=== PATIENT | female | born 1970 | race African-American/Black ===

== ENCOUNTER 2017-07-12 00:30 | Inpatient (IN) ==
[2017-07-12] MEDS ORDERED: NALOXONE 0.4 MG/ML VIAL IV STA (01:08)
[2017-07-12] MEDS ORDERED: SODIUM CHLORIDE 0.9% 500 ML IV STA (01:08)
[2017-07-12] MEDS ORDERED: ALBUTEROL/IPRATROPIUM 3 ML NEB RESP TX STA (01:33)
[2017-07-12] MEDS ORDERED: FUROSEMIDE 40 MG/4 ML VIAL IV STA (01:33)
[2017-07-12 02:14] LABS: Allen Test Positive
[2017-07-12 02:24] LABS: ABG Base Excess 4.6 MMOL/L (-2.5-2.5); ABG HCO3 32.1 MMOL/L (20-26); ABG Oxygen Saturation 96.7 % (95-100); ABG PH 7.305 (7.35-7.45); ABG PO2 91.1 MM HG (80-95); ABG TCO2 34.1 MMOL/L (23-27)
[2017-07-12 02:32] LABS: Basophils % 0.3 % (0.0-0.8); Eosinophils # 0.4 10*3/uL (0.0-0.87); Eosinophils % 4.8 % (0.00-10.9); Hemoglobin 8.9 GM/DL (12.0-16.0); Immature Granulocytes % 0.3 %; Immature Granulocytes Absolute 0.02 #; Lymphocytes # 1.6 10*3/uL (1.4-4.0); Mean Corpuscular HGB Conc 29.7 GM/DL (32-36); Mean Corpuscular Hemoglobin 28 PG (27-34); Mean Corpuscular Volume 95.2 FL (87-102); Mean Platelet Volume 11.2 FL (9.6-12.0); Monocytes # 0.7 10*3/uL (0.11-0.8); Monocytes % 8.6 % (1.7-12.7); Neutrophils # 5.3 10*3/uL (1.4-7.4); Platelet Count 189 T/CUMM (130-400); Red Blood Count 3.15 MC/CUMM (3.8-5.5); Red Cell Distribution Width 14.8 % (9.3-17.3)
[2017-07-12 02:42] LABS: PT Patient Result 10.2 SECS
[2017-07-12 02:59] LABS: Lactic Acid 0.9 MMOL/L (0.4-2.0)
[2017-07-12 03:03] LABS: Ammonia 60 UMOL/L (11-32)
[2017-07-12 03:10] LABS: Amorphous Crystals,Urine Occasional /HPF (Few); Apearance,Urine CLEAR (Clear); Bacteria,Urine Occasional /HPF (Few); Bilirubin,Urine Negative (Negative); Blood, Urine Negative (Negative); Glucose,Urine (UA) Negative (Negative); Granular Casts,Urine 5 /LPF (0-1); Hyaline Casts,Urine 1 /LPF (0-3); Ketones,Urine Negative (Negative); Mucus,Urine Occasional /LPF (Occasional); Nitrite,Urine Negative (Negative); Protein,Urine Negative; RBC,Urine 1 /HPF (0-4); Squamous Epithelial Cell,Urine Occasional /HPF (0-10); Urine Color Yellow (Yellow); Urine Specific Gravity 1.013 (1.001-1.035); Urine Urobilinogen < 2.0 EU/DL (0.2-1.0); WBC,Urine <1 /HPF (0-6)
[2017-07-12 03:12] LABS: B-Type Natriuretic Peptide < 2 PG/ML (2-100)
[2017-07-12 03:13] LABS: Barbiturates Screen,Urine Negative (Negative); Benzodiazepines Screen,Urine Negative (Negative); Cannabinoid Screen,Urine Negative (Negative); Opiate Screen,Urine Negative (Negative); Phencyclidine Screen,Urine Negative (Negative)
[2017-07-12 03:13] LABS: Alanine Aminotransferase 16 U/L (13-56); Albumin 3.2 G/DL (3.4-5.0); Alkaline Phosphatase 54 U/L (45-117); Aspartate Amino Transferase 19 U/L (0-37); Blood Urea Nitrogen 15 MG/DL (7-18); Calcium 8.7 MG/DL (8.5-10.1); Glucose 102 MG/DL (74-106); Magnesium 2.3 MG/DL (1.8-2.4); Osmolality,Calculated 277.5 MOS/KG (273-304); Potassium 4.6 MMOL/L (3.5-5.1); Sodium 139 MMOL/L (136-145); Total Protein 7.8 G/DL (6.4-8.3); Troponin I Only < 0.015 NG/ML (0.00-0.045)
[2017-07-12] MEDS ORDERED: FUROSEMIDE 100 MG/10 ML VIAL ONE (03:28)
[2017-07-12 03:52] LABS: Prolactin 183.5 NG/ML
[2017-07-12] MEDS ORDERED: FLUMAZENIL 1 MG/10 ML VIAL IV STA (04:09)
[2017-07-12] MEDS ORDERED: ALBUTEROL/IPRATROPIUM 3 ML NEB RESP TX PRN (05:13)
[2017-07-12] MEDS ORDERED: ALBUTEROL 2.5 MG/3 ML NEB RESP TX PRN (05:13)
[2017-07-12] MEDS ORDERED: ONDANSETRON 4 MG/2 ML VIAL IV PRN (05:13)
[2017-07-12] MEDS ORDERED: LACTULOSE 160 GM/240 ML BOTTLE RECTAL PRN (05:58)
[2017-07-12] MEDS ORDERED: GABAPENTIN 300 MG CAPSULE PO SCH (09:00)
[2017-07-12] MEDS ORDERED: PERPHENAZINE PO SCH (09:00)
[2017-07-12] MEDS ORDERED: BENZTROPINE 1 MG TABLET PO SCH (09:00)
[2017-07-12] MEDS: NIACIN ER 500 MG TABLET PO SCH ×2 (09:45→22:28)
[2017-07-12] MEDS: SERTRALINE 50 MG TABLET PO SCH (09:45)
[2017-07-12] MEDS: LISINOPRIL 10 MG TABLET PO SCH (09:45)
[2017-07-12] MEDS: ENOXAPARIN 40 MG/0.4 ML SYRINGE SUBCUT SCH (09:46)
[2017-07-12] MEDS: FUROSEMIDE 40 MG TABLET PO SCH (09:46)
[2017-07-12] MEDS: SPIRONOLACTONE 50 MG TABLET PO SCH (09:47)
[2017-07-12] MEDS: ASPIRIN EC 325 MG TABLET PO SCH (09:47)
[2017-07-12] MEDS: FLUTICASONE/SALMETEROL 250-50 DISKUS 14 DOSE INH SCH ×2 (09:54→22:28)
[2017-07-12] MEDS: SODIUM CHLORIDE 0.9% 1,000 ML IV SCH (12:37)
[2017-07-12] MEDS ORDERED: INFLUENZA VIRUS VACCINE 0.5 ML SYRINGE IM ONE (12:40)
[2017-07-12] MEDS: PANTOPRAZOLE 40 MG VIAL IV SCH (13:53)
[2017-07-12] MEDS ORDERED: LACTULOSE 20 GM/30 ML UDCUP PO PRN (13:54)
[2017-07-12 14:47] LABS: ABG Base Excess 5.5 MMOL/L (-2.5-2.5); ABG HCO3 29.4 MMOL/L (20-26); ABG Oxygen Saturation 97.7 % (95-100); ABG PCO2 65.2 MM HG (35-48); ABG PH 7.315 (7.35-7.45); ABG PO2 99.4 MM HG (80-95); ABG TCO2 30.9 MMOL/L (23-27)
[2017-07-12] MEDS: methylPREDNISolone SOD SUC 40 MG/1 ML VIAL IV SCH (17:14)
[2017-07-12] MEDS: SIMVASTATIN 20 MG TABLET PO SCH (22:29)
[2017-07-13] MEDS: methylPREDNISolone SOD SUC 40 MG/1 ML VIAL IV SCH (01:40)
[2017-07-13 04:42] LABS: Basophils % 0.2 % (0.0-0.8); Hematocrit 28.1 VOL% (35.7-47.0); Hemoglobin 8.6 GM/DL (12.0-16.0); Immature Granulocytes % 0.5 %; Immature Granulocytes Absolute 0.03 #; Lymphocytes # 0.8 10*3/uL (1.4-4.0); Lymphocytes % 12.7 % (21.3-54.2); Mean Corpuscular HGB Conc 30.6 GM/DL (32-36); Mean Corpuscular Hemoglobin 28 PG (27-34); Mean Corpuscular Volume 91.2 FL (87-102); Mean Platelet Volume 11.6 FL (9.6-12.0); Monocytes # 0.1 10*3/uL (0.11-0.8); Monocytes % 1.8 % (1.7-12.7); Neutrophils # 5.2 10*3/uL (1.4-7.4); Neutrophils % 84.8 % (38.7-73.9); Platelet Count 202 T/CUMM (130-400); Red Blood Count 3.08 MC/CUMM (3.8-5.5); Red Cell Distribution Width 14.7 % (9.3-17.3); White Blood Count 6.1 T/CUMM (4-12)
[2017-07-13 05:18] LABS: Albumin 2.9 G/DL (3.4-5.0); Bilirubin,Total 0.7 MG/DL (0.2-1.0); Calcium 8.7 MG/DL (8.5-10.1); Osmolality,Calculated 276.7 MOS/KG (273-304); Potassium 5.2 MMOL/L (3.5-5.1); Total Protein 7.2 G/DL (6.4-8.3)
[2017-07-13] MEDS: PANTOPRAZOLE 40 MG VIAL IV SCH (06:55)
[2017-07-13] MEDS ORDERED: GLUCAGON 1 MG VIAL IM PRN (07:23)
[2017-07-13] MEDS ORDERED: DEXTROSE 50% 25 GM/50 ML VIAL IV PRN (07:23)
[2017-07-13] MEDS: INSULIN LISPRO 100 UNIT/ML SUBCUT SCH ×4 (08:15→21:20)
[2017-07-13] MEDS: LISINOPRIL 10 MG TABLET PO SCH (08:39)
[2017-07-13] MEDS: NIACIN ER 500 MG TABLET PO SCH ×2 (08:39→21:19)
[2017-07-13] MEDS: SPIRONOLACTONE 50 MG TABLET PO SCH (08:40)
[2017-07-13] MEDS: ENOXAPARIN 40 MG/0.4 ML SYRINGE SUBCUT SCH (08:40)
[2017-07-13] MEDS: FUROSEMIDE 40 MG TABLET PO SCH (08:40)
[2017-07-13] MEDS: ASPIRIN EC 325 MG TABLET PO SCH (08:40)
[2017-07-13] MEDS: predniSONE 20 MG TABLET PO SCH (08:40)
[2017-07-13] MEDS: SERTRALINE 50 MG TABLET PO SCH (08:40)
[2017-07-13] MEDS: SODIUM CHLORIDE 0.9% 1,000 ML IV SCH (08:51)
[2017-07-13] MEDS: FLUTICASONE/SALMETEROL 250-50 DISKUS 14 DOSE INH SCH ×2 (13:24→21:19)
[2017-07-13] MEDS: SIMVASTATIN 20 MG TABLET PO SCH (21:19)
[2017-07-14] MEDS: PANTOPRAZOLE 40 MG VIAL IV SCH (09:19)
[2017-07-14] MEDS: ENOXAPARIN 40 MG/0.4 ML SYRINGE SUBCUT SCH (09:19)
[2017-07-14] MEDS: NIACIN ER 500 MG TABLET PO SCH ×2 (09:19→20:58)
[2017-07-14] MEDS: predniSONE 20 MG TABLET PO SCH (09:19)
[2017-07-14] MEDS: FUROSEMIDE 40 MG TABLET PO SCH (09:20)
[2017-07-14] MEDS: SERTRALINE 50 MG TABLET PO SCH (09:20)
[2017-07-14] MEDS: SPIRONOLACTONE 50 MG TABLET PO SCH (09:20)
[2017-07-14] MEDS: LISINOPRIL 10 MG TABLET PO SCH (09:20)
[2017-07-14] MEDS: ASPIRIN EC 325 MG TABLET PO SCH (09:20)
[2017-07-14] MEDS: FLUTICASONE/SALMETEROL 250-50 DISKUS 14 DOSE INH SCH ×2 (09:27→20:58)
[2017-07-14] MEDS: INSULIN LISPRO 100 UNIT/ML SUBCUT SCH ×4 (09:28→20:59)
[2017-07-14] MEDS: SIMVASTATIN 20 MG TABLET PO SCH (20:58)
[2017-07-15] MEDS: INSULIN LISPRO 100 UNIT/ML SUBCUT SCH ×4 (07:57→21:52)
[2017-07-15] MEDS: ENOXAPARIN 40 MG/0.4 ML SYRINGE SUBCUT SCH (09:45)
[2017-07-15] MEDS: PANTOPRAZOLE 40 MG VIAL IV SCH (09:45)
[2017-07-15] MEDS: LISINOPRIL 10 MG TABLET PO SCH (09:46)
[2017-07-15] MEDS: SPIRONOLACTONE 50 MG TABLET PO SCH (09:47)
[2017-07-15] MEDS: FUROSEMIDE 40 MG TABLET PO SCH (09:47)
[2017-07-15] MEDS: predniSONE 20 MG TABLET PO SCH (09:47)
[2017-07-15] MEDS: SERTRALINE 50 MG TABLET PO SCH (09:47)
[2017-07-15] MEDS: NIACIN ER 500 MG TABLET PO SCH ×2 (09:47→21:52)
[2017-07-15] MEDS: ASPIRIN EC 325 MG TABLET PO SCH (09:47)
[2017-07-15] MEDS: FLUTICASONE/SALMETEROL 250-50 DISKUS 14 DOSE INH SCH ×2 (09:48→21:53)
[2017-07-15] MEDS: SIMVASTATIN 20 MG TABLET PO SCH (21:52)
[2017-07-16] MEDS: PANTOPRAZOLE 40 MG VIAL IV SCH (06:32)
[2017-07-16] MEDS: predniSONE 20 MG TABLET PO SCH (10:45)
[2017-07-16] MEDS: FUROSEMIDE 40 MG TABLET PO SCH (10:46)
[2017-07-16] MEDS: NIACIN ER 500 MG TABLET PO SCH ×2 (10:46→21:04)
[2017-07-16] MEDS: SERTRALINE 50 MG TABLET PO SCH (10:46)
[2017-07-16] MEDS: LISINOPRIL 10 MG TABLET PO SCH (10:46)
[2017-07-16] MEDS: ASPIRIN EC 325 MG TABLET PO SCH (10:46)
[2017-07-16] MEDS: SPIRONOLACTONE 50 MG TABLET PO SCH (10:46)
[2017-07-16] MEDS: FLUTICASONE/SALMETEROL 250-50 DISKUS 14 DOSE INH SCH ×2 (10:47→21:04)
[2017-07-16] MEDS: ENOXAPARIN 40 MG/0.4 ML SYRINGE SUBCUT SCH (10:47)
[2017-07-16] MEDS: INSULIN LISPRO 100 UNIT/ML SUBCUT SCH ×4 (11:19→21:04)
[2017-07-16] MEDS: SIMVASTATIN 20 MG TABLET PO SCH (21:04)
[2017-07-16] MEDS ORDERED: diphenhydrAMINE CAP 25 MG CAPSULE PO ONE (21:30)
[2017-07-17] MEDS: PANTOPRAZOLE 40 MG VIAL IV SCH (05:30)
[2017-07-17] MEDS: predniSONE 20 MG TABLET PO SCH (09:17)
[2017-07-17] MEDS: ASPIRIN EC 325 MG TABLET PO SCH (09:17)
[2017-07-17] MEDS: ENOXAPARIN 40 MG/0.4 ML SYRINGE SUBCUT SCH (09:17)
[2017-07-17] MEDS: NIACIN ER 500 MG TABLET PO SCH (09:18)
[2017-07-17] MEDS: LISINOPRIL 10 MG TABLET PO SCH (09:18)
[2017-07-17] MEDS: FUROSEMIDE 40 MG TABLET PO SCH (09:18)
[2017-07-17] MEDS: INSULIN LISPRO 100 UNIT/ML SUBCUT SCH ×3 (09:18→17:00)
[2017-07-17] MEDS: SERTRALINE 50 MG TABLET PO SCH (09:18)
[2017-07-17] MEDS: SPIRONOLACTONE 50 MG TABLET PO SCH (09:18)
[2017-07-17] MEDS: FLUTICASONE/SALMETEROL 250-50 DISKUS 14 DOSE INH SCH (15:02)
[2017-07-17 16:17] VITALS: BP 147/84
== END 2017-07-17 17:45 | disposition home or self-care (01) | DRG 133 ==
LOC: N.ED 00:30 → SUATTDRO 05:00 → N.EDINP 05:00 → N.ICU 12:19 → N.2E 07-13 13:57
PROVIDERS: ADMIT Internal Medicine; ATTEND Hospitalist